=== PATIENT | female | born 1995 | race Two or more races ===

== ENCOUNTER 2019-04-13 23:43 | Emergency (ER) | payer MEDICAID, OTHER ==
[~2019-04-13] VITALS: Ht 162.6 cm; Wt 102.5 kg
--- NOTE | 2019-04-14 | NUR ---
PT [id number] S/P INGESTION OF UNKNOWN MULTIPLE PILLS. PER PT SHE TOOK ABILIFY, MELATONIN, AND COULDN'T RECALL WHAT ELSE. PT LETHARGIC BUT RESPONSIVE TO QUESTIONS, VSS, BREATHING EVEN AND UNLABORED TO ROOM AIR W/ NO ACUTE DISTRESS NOTED.
--- NOTE | 2019-04-14 01:12 | NUR ---
PHLEB AT BEDSIDE FOR BLOOD DRAW
[2019-04-14 01:28] LABS: APPEARANCE,URINE Slightly Cloudy (CLEAR); BILIRUBIN,URINE SMALL (NEGATIVE); BLOOD, URINE Moderate Ery/uL (NEGATIVE); COLOR,URINE Dark (YELLOW); KETONES,URINE 15 (NEGATIVE); LEUKOCYTE ESTERASE ,URINE Negative (NEGATIVE); NITRITE, URINE Negative (NEGATIVE); PH,URINE 5.5 (5.0-8.0); PROTEIN,URINE 100 mg/dl (NEGATIVE); UGLUCOSE Negative (NEGATIVE); UROBILINOGEN,URINE 0.2 EU/dL (0.2)
[2019-04-14 01:30] LABS: BASOPHILS # (AUTO) 0.1 /CMM (0.0-0.2); BASOPHILS % (AUTO) 0.7 % (0.0-2.0); EOSINOPHILS % (AUTO) 0.6 % (0.0-6.0); HEMATOCRIT 40 % (33-45); HEMOGLOBIN 13.1 g/dL (11.5-14.8); LYMPHOCYTES # (AUTO) 2.3 /CMM (0.8-4.8); MEAN CORPUSCULAR HGB CONC 33 g/dl (31.0-36.0); MEAN CORPUSCULAR VOLUME 82 fL (82-100); MONOCYTES # (AUTO) 0.6 /CMM (0.1-1.30); MONOCYTES % (AUTO) 6.9 % (2.0-12.0); NEUTROPHILS # (AUTO) 5.4 /CMM (1.8-8.9); NEUTROPHILS % (AUTO) 64.8 % (43.0-81.0); PLATELET COUNT (AUTO) 245 /CMM (150-450); RED BLOOD CELL COUNT(AUTO) 4.84 MIL/uL (4.0-5.2); WHITE BLOOD COUNT (AUTO) 8.4 K/uL (4.3-11.0)
[2019-04-14 01:37] LABS: CALCIUM, SERUM 9.4 mg/dL (8.5-10.1); CARBON DIOXIDE 26 mmol/L (21-32); CHLORIDE 105 mmol/L (98-107); CREATININE 1.1 mg/dL (0.6-1.3); GLUCOSE 103 mg/dL (74-106); POTASSIUM 4.4 mmol/L (3.5-5.1); SODIUM SERUM 138 mmol/L (136-145); UREA NITROGEN, BLOOD 12 mg/dL (7-18)
[2019-04-14 01:43] LABS: ALANINE AMINOTRANSFERASE 28 U/L (12-78); ALBUMIN 4.3 g/dL (3.4-5.0); ALCOHOL, BLOOD < 3 mg/dL (0-0); ALKALINE PHOSPHATASE 64 U/L (46-116); ASPARTATE AMINOTRANSFERASE 20 U/L (15-37); BILIRUBIN,DIRECT 0.1 mg/dL (0.0-0.2); BILIRUBIN,TOTAL 0.5 mg/dL (0.2-1.0); TOTAL PROTEIN, SERUM 7.2 g/dL (6.4-8.2)
[2019-04-14 01:45] LABS: ACETAMINOPHEN 0 ug/ml (10-30); SALICYLATE 2.6 mg/dL (2.8-20.0)
--- NOTE | 2019-04-14 02:14 | NUR ---
PT ALERT AND RESPONSIVE, VSS AT THIS TIME. NO ACUTE DISTRESS NOTED.
[2019-04-14 02:39] LABS: BACTERIA,URINE Moderate /HPF (None Seen); SQUAMOUS EPITHELIAL CELL,UR Moderate /HPF (None Seen)
--- NOTE | 2019-04-14 03:45 | NUR ---
PT RESTING COMFORTABLY IN BED. VITAL SIGNS STABLE. WILL CONTINUE TO MONITOR
--- NOTE | 2019-04-14 04:36 | NUR ---
PT REMAINS ASLEEP, EASILY AROUSABLE, NO ACUTE DISTRESS NOTED, RESP EVEN AND UNLABORED. CALL LLIGHT WITHIN REACH. WILL CONTINUE TO MONITOR.
--- NOTE | 2019-04-14 05:34 | NUR ---
CALLED [employer], [employer]IR[employer] CLERK FOR EVALUATION. NO ANSWER. WILL FOLLOW UP
--- NOTE | 2019-04-14 06:15 | NUR ---
CALLED SHILPA MEYER FOR EVALUATION. ON THE WAY TO THE HOSPITAL
--- NOTE | 2019-04-14 06:46 | NUR ---
PT REMAINS ASLEEP, EASILY AROUSABLE, NO ACUTE DISTRESS NOTED, RESP EVEN AND UNLABORED. CALL LLIGHT WITHIN REACH. WILL CONTINUE TO MONITOR.
--- NOTE | 2019-04-14 07:37 | NUR ---
POKER IN SITTER 1:1 AT BEDSIDE
--- NOTE | 2019-04-14 08:47 | NUR ---
GERRI was informed by Art, crisis supervisor machining that pt. is willing to go voluntary to [facility]. GERRI faxed clinicals to . GERRI called Michoacano at [facility] inquiring about bed availability. Michoacano informed GERRI he will follow up with GERRI in 30 minutes in regards to bed availability. GERRI updated RN Luiz in ED.
--- NOTE | 2019-04-14 09:44 | NUR ---
PATIENT IS EASILY AROUSABLE, AWAKE, ORIENTED, AND IS INTERESTED IN EATING. KITCHEN CALLED FOR MEAL.
--- NOTE | 2019-04-14 11:31 | NUR ---
Social service consult for suicidal ideation with overdosing on medications. Pt. is a 23 year old female who apparently took multiple tablets of unknown medication about 30 minutes prior to coming to the hospital via rescue ambulance. GERRI met with the pt. bedside. Pt. is alert and oriented x 4. Pt. is cooperative with SW during the assessment. Pt. states she is homeless and has been for the past 2 years. Prior to being homeless, pt. was residing with her mother, but left because they didn't get along. Pt. states she is depressed and is seeking voluntary admission to a psychiatric hospital. Pt. has a psychiatric diagnosis of Bipolar Disorder, Schizophrenia and PTSD. Pt. saw a therapist twice at a [facility] clinic in [facility] but cannot remember the name of the clinic. Pt. smokes marijuana and Black and Mild cigarettes occasionally. Pt. denies any alcohol use. GERRI already initiated the voluntary hospitalization with [facility] earlier this AM. Pt. will be accepted at [facility] per Kassidy at [facility] intake .
--- NOTE | 2019-04-14 11:40 | NUR ---
GERRI received a call from Kassidy at [facility] intake stating pt. has been accepted to [facility] location, room 602/B. Accepting Dr. Urbano/ Dr. Conde. Report to be called to nursing stack supervisor Yesenia at x [phone]. Addendum: 04/14/19 at 1144 by AYLA TALLEY GERRI gave the aforementioned information to Piedad in ED.
--- NOTE | 2019-04-14 11:46 | NUR ---
ACCEPTED AT [facility] [address] ACCEPTING DR LOPEZ AND DR WHITTAKER. NUMBER FOR REPORT [id number] (YECENIA).
--- NOTE | 2019-04-14 11:58 | NUR ---
REPORT GIVEN TO KANDIS AT [facility].
--- NOTE | 2019-04-14 12:43 | NUR ---
[facility] ETA [id number] TRIP #[id number]
--- NOTE | 2019-04-14 13:01 | NUR ---
JOHNATHON ARRIVED AND GIVEN REPORT TO YENI TO TRANSFER TO TRANSFER PATIENT TO [facility]
[2019-04-14 13:08] VITALS: BP 106/68
== END 2019-04-14 13:18 ==
LOC: ER 23:44
DX: R45.851 Suicidal ideations (principal); F32.9 Major depressive disorder, single episode, unspecified; F12.10 Cannabis abuse, uncomplicated; Z59.0 Homelessness
CPT/HCPCS: 36415; 80048; 80076; 80305; 80307; 80329; 81001; 84703; 85025; 99284; G0480; 81000-TC; 87086-TC